=== PATIENT | male | born 1950 | race Caucasian/White ===

== ENCOUNTER 2016-07-29 22:23 | Inpatient (IN) ==
--- NOTE | 2016-07-29 22:55 | Emergency Department Note ---
Disposition Clinical Impression: Mass of lung, Pneumonia Disposition: Admitted As Inpatient Condition: Fair Chest Pain HPI - General Chief Complaint: ED Chest Pain Stated Complaint: CP Time Seen by Provider: 07/29/16 22:30 Source: patient, EMS Mode of arrival: EMS Limitations: no limitations Vital Signs Reviewed: Yes Nursing Notes Reviewed: Yes - History of Present Illness HPI Narrative: Patient is brought to the ED from the [facility]. He states x 2 months he has been short of breath, coughing and feeling weak and not sure what is going on. While at the [place] they did a chest xray which showed a possible mass in the RUL. They were unable to perform CT of chest so sent him to the ED. Pt complaint: chest pain, other (increased shortness of breath ) Onset (ago): unknown Duration: gradually worsening Onset: during rest Pain Location: right chest Severity: severe Severity scale (1-10): 9 Quality: aching, other (with more shortness of breath ) Improves with: nothing Worsens with: inspiration Context: recent illness Associated symptoms: Reports: dyspnea, cough Treatments prior to arrival chest pain: oxygen - Related Data Allergies Allergy/AdvReac Type Severity Reaction Status Date / Time Penicillins Allergy See Verified 07/29/16 22:28 Comments All systems ED: reviewed and negative except as stated. ENT ED: Reports: congestion Cardiovascular: Reports: chest pain Respiratory: Reports: cough, dyspnea Gastrointestinal: Denies: abdominal pain, nausea, vomiting, diarrhea, constipation, hematemesis, melena, hematochezia Chest Pain PMH - Past Medical History Medical history: Reports: arthritis, COPD, GERD, hyperlipidemia, hypertension Psychiatric history: Reports: anxiety, depression, PTSD - Social History Smoking Status: Current some day smoker Alcohol use: Reports: none Drug use: Reports: none Physical Exam - General Limitations: no limitations General appearance: alert - Head Head exam: atraumatic, normocephalic, normal inspection - Eye Eye exam: Present: normal appearance, PERRL, EOMI - Neck Neck exam: Present: normal inspection, full ROM, trachea midline, tenderness, lymphadenopathy. Absent: meningismus, thyromegaly - Chest Chest inspection: Present: normal inspection, symmetric chest wall rise - Respiratory Respiratory exam: Present: normal lung sounds bilaterally - Cardiovascular Cardiovascular exam: Present: regular rate, normal rhythm, normal heart sounds - Abdominal Exam Abdominal exam: Present: soft, Non-Tender. Absent: tenderness, distention, guarding, rebound, rigidity - Extremities Exam Extremities exam: Present: normal inspection, full ROM. Absent: tenderness, pedal edema - Neurological Exam Neurological exam: Present: alert, oriented X3 - Psychiatric Psychiatric exam: Present: normal affect, normal mood - Skin Skin exam: Present: warm, dry, intact, normal color Course - Consultations Consultation #1: spoke with Dr. Harman, hospitalist, who accepted patient for admission. Time: 00:26 Vital Signs Temperature 99.2 F 07/29/16 22:28 Pulse Rate 88 07/29/16 22:28 Respiratory Rate 20 07/29/16 22:28 Blood Pressure 155/87 07/29/16 22:28 O2 Sat by Pulse Oximetry 97 07/29/16 22:28 Temperature 99.2 F 07/29/16 22:28 Pulse Rate 88 07/29/16 22:28 Respiratory Rate 20 07/29/16 22:28 Blood Pressure 155/87 07/29/16 22:28 O2 Sat by Pulse Oximetry 97 07/29/16 22:56 Oxygen Delivery Oxygen Delivery Room Air Chest Pain - Lab Data Lab results reviewed: Yes I reviewed the patient's lab results. Lab results narrative: lab results were sent with patient from the [facility] - Radiology Data Radiology results reviewed: Yes I reviewed the patient's radiology results. Attestation Statement - Attestation Attestation: I, Neymar Enriquez MD, personally performed a history and physical exam of the patient and discussed their management with the midlevel provicer, PAC/MOISTURE TESTER. I reviewed the midlevel provider's note and agree with the documented findings, medical decision making, and plan of care. 65-year-old male [place] patient with a complain of some shortness of breath and general illness and weight loss which is apparently been going on over the past few months however patient tells me it is just in the past few days. He was seen at the [facility] urgent care and chest x-ray showed an apparent lung mass. He was referred here for CT of the chest and further evaluation and management. On examination and is a cachectic elderly male in no acute distress. He is alert and oriented 3. There is no cyanosis or diaphoresis. Breath sounds are decreased bilaterally. Heart regular rate and rhythm. Abdomen soft and nontender with normal bowel sounds. CT obtained here and was suspicious for malignancy but also showed pneumonia. The hospitalist, Dr. Harman, was consulted and accepted admission of the patient.
--- NOTE | 2016-07-30 01:01 | Internal Med History&Physical ---
Date of Encounter: 07/30/16 Time of Encounter: 00:45 Assessment and Plan (1) Pneumonia Current visit: Yes Status: Suspected Admit inpatient. IV antibiotics. O2 supplementation as needed. Follow blood cultures and sputum culture. Patient was in the hospital for at least 2 midnights. High risk for complications. Qualifiers: Pneumonia type: due to Pneumococcus Laterality: right Lung location: middle lobe of lung Qualified Code(s): J13 - Pneumonia due to Streptococcus pneumoniae (2) Mass of lung Current visit: Yes Status: Acute Right upper lobe lesion with multiple lesions suggestive of malignancy. We will consult pulmonology for further recommendations and see if patient would need repeat biopsy. We will also obtain records from [place] regarding previous biopsy results and imaging studies. (3) COPD (chronic obstructive pulmonary disease) Current visit: Yes Status: Chronic Chronic. Does not appear to be in acute exacerbation at this time. We will use nebs as needed. O2 supplementation as needed Qualifiers: COPD type: emphysema Emphysema type: panlobular Qualified Code(s): J43.1 - Panlobular emphysema (4) Tobacco abuse Current visit: Yes Status: Chronic We will order nicotine patch. Internal Medicine - H&P: HPI Chief complaint: Cough, less of breath and right-sided chest pain, weight loss, malaise Admitted From: Emergency Dept Plans for Post Hospital Care: Home History of present illness: Mr. Cuba is a 65 year old male with history of COPD, hyperlipidemia, hypertension, PTSD who presented to the [place] initially with complaints of right- sided chest pain, shortness of breath and weight loss that has been ongoing for about a year but progressively worse over the past 2 months. He has been having productive sputum without any hemoptysis. No hematemesis or melena. The pain is located in the right upper and lateral region. Nonradiating. Rated 9 out of 10 in severity. Pain gets worse with deep breaths. Denies any fever or chills or night sweats. No nausea or vomiting. Patient states that he was previously told he had a "pencil lead" sized lesion in his right lung which was biopsied multiple times which was found to be benign. Past Med Surg Social Fam HX - Past Medical History Medical history: arthritis, COPD, GERD, hyperlipidemia, hypertension Psychiatric history: anxiety, depression, PTSD - Social History Smoking Status: Current some day smoker Alcohol use: none Drug use: none - Additional Family History Additional family history: Reviewed and found to be noncontributory at this time Internal Medicine - H&P: Meds Allergies Penicillins Allergy (Verified 07/29/16 22:28) See Comments All Systems PM: A 10-system review of systems was performed and is negative for pertinent findings except as documented above in the HPI. - Constitutional Constitutional: malaise, weight loss, no chills, no fever(s), no night sweats - EENT Eyes: no change in vision, no discharge, no pain, no photophobia Ears: no ear discharge, no ear pain, no tinnitus Nose, mouth and throat: no dysphagia, no nasal discharge, no neck pain, no sore throat - Cardiovascular Cardiovascular ROS IM: chest pain (Right-sided), no diaphoresis, no dyspnea, no lightheadedness, no palpitations, no syncope - Respiratory Respiratory: cough, dyspnea, no wheezing, no excessive phlegm production - Gastrointestinal Gastrointestinal: no abdominal pain, no diarrhea, no hematemesis, no hematochezia, no melena, no nausea, no vomiting - Musculoskeletal Musculoskeletal ROS IM: no numbness, no tingling - Integumentary Integumentary IM: no rash, no unusual bruising - Neurological Neurological ROS: no confusion, no convulsions, no focal weakness, no numbness, no tingling, no tremor(s) - Hematologic/Lymphatic Hematologic/Lymphatic: no easy bruising - Constitutional Vitals: Temp Pulse Resp BP Pulse Ox 99.2 F 88 20 155/87 97 07/29/16 22:28 07/29/16 22:28 07/29/16 22:28 07/29/16 22:28 07/29/16 22:56 General appearance: Present: cooperative, A&O X 3, answers questions appropriately - Eye Eye exam: Present: EOMI, PERRL, conjuntiva pink, sclera anicteric - Neck Neck exam general surgery: Present: supple, trachea midline. Absent: lymphadenopathy - Respiratory Respiratory exam: Present: decreased breath sounds (Right upper lobes), prolonged expiratory phase. Absent: accessory muscle use, rales, rhonchi, wheezes - GI/Abdominal GI/Abdominal exam: Present: normal bowel sounds, soft, no peritoneal signs. Absent: distended, tenderness - Extremities Exam Extremities exam: Present: warm, radial pulses palpable and symetrical. Absent : calf tenderness, cyanotic, pedal edema - Neurological Exam Neurological exam: Present: alert, CN II-XII intact, oriented X3, no focal deficits, strengths equal and symetr throughout. Absent: facial droop, speech deficit - Psychiatric Psychiatric exam: Present: normal affect, normal mood - Skin Skin exam: Present: dry, intact Internal Med - H&P Results - Labs Labs: WBC 13.1, hemoglobin 9 - EKG Data -: EKG Interpreted by Myself EKG shows normal: sinus rhythm - EKG Data Interpretation IM: normal EKG - Impressions ITS Impressions Chest CT 07/29/16 23:15 IMPRESSION: 1. Multiple irregular pulmonary lesions as above. Finding are suspicious for underlying neoplastic process, possibly malignant. In addition, there is an area of masslike consolidation in medial right upper lobe. While this could reflect pneumonia, possible underlying neoplastic mass cannot be confidently excluded. 2. Severe emphysema. 3. Right upper lobe consolidation and superimposed ground-glass opacities in the right or lower lobe. Findings are suspicious for infectious pneumonia. Multiple cystic lucencies within the consolidated lung most likely reflect cystic changes related to emphysema. However given the extensive consolidation, early forming intrapulmonary abscesses are difficult to exclude. D/ / Skip Kramer MD / Skip Kramer MD Interpreting Provider: Skip Kramer MD - Attending Attestation This document has been at least partially created by [employer] recognition technology by Dr. Harman. Errors in grammar, wording or other phrases may exist. If errors are found after the documentation is signed, they will be addressed individually in the addendum section of this document when appropriate.
[2016-07-30] MEDS ORDERED: Naloxone 0.4 MG/ML INJ IVP PRN (01:21)
[2016-07-30 02:08] LABS: Basophils % 0.1 %; Hematocrit 25.5 % (37.5-50.1); Hemoglobin 8.4 g/dL (12.9-16.9); Immature Granulocytes % 0.6 % (0-4); Lymphocytes # 0.2 K/mcL (0.6-4.6); Lymphocytes % 1.5 %; Mean Corpuscular HGB Conc 32.9 g/dL (31.6-35.5); Mean Corpuscular Volume 94.1 fL (83.0-100.0); Mean Platelet Volume 8.3 fL (9.4-12.4); Monocytes # 0.1 K/mcL (0.0-1.3); Monocytes % 0.5 %; Neutrophils # 14.8 K/mcL (1.6-8.9); Platelet Count 438 K/mcL (140-400); Red Blood Count 2.71 M/mcL (4.19-5.50); Red Cell Distribution Width 13.3 % (11.5-14.5); Segmented Neutrophils % 97.3 %
[2016-07-30 02:10] LABS: INR 1.2; Prothrombin Time 12.5 Seconds (9.4-12.1)
[2016-07-30 02:13] LABS: Activated Partial Thrombo Time 37.7 Seconds (26.0-36.0)
[2016-07-30 02:23] LABS: BUN/Creatinine Ratio 41 (6-26); Blood Urea Nitrogen 28 mg/dL (8-26); Calcium 9.4 mg/dL (8.6-10.8); Carbon Dioxide 21 mEq/L (19-29); Chloride 102 mEq/L (98-109); Glucose 131 mg/dL (70-99); Osmolality,Calculated 291 (280-300); Potassium 4.2 mEq/L (3.5-4.5); Sodium 137 mEq/L (136-145); eGFR For African Americans > 60 (> 60); eGFR For Non-African Americans > 60 (> 60)
[2016-07-30] MEDS: Levofloxacin 750 MG/150 ML 750 MG/150 ML BAG IVPB SCH ×2 (03:48→09:34)
[2016-07-30] MEDS: *HR* Methadone 10 MG TABLET PO SCH ×3 (04:11→20:17)
[2016-07-30] MEDS: *HR* Heparin 5,000 UNIT/ML VIAL SQ SCH ×2 (05:55→16:24)
[2016-07-30] MEDS ORDERED: traZODone 50 MG TABLET PO PRN (06:57)
[2016-07-30] MEDS ORDERED: *HR* Methadone 10 MG TABLET PO SCH (08:00)
[2016-07-30] MEDS: Ascorbic Acid 500 MG TABLET PO SCH (09:31)
[2016-07-30] MEDS: BuPROPion SR (12 HR) 150 MG TABLET PO SCH ×2 (09:31→20:17)
[2016-07-30] MEDS: Folic Acid 1 MG TABLET PO SCH (09:31)
[2016-07-30] MEDS: Aspirin Enteric Coated 81 MG Tablet PO SCH (09:32)
[2016-07-30] MEDS: Lisinopril 20 MG TABLET PO SCH ×2 (09:32→20:17)
[2016-07-30] MEDS: amLODIPine 5 MG TABLET PO SCH (09:33)
[2016-07-30] MEDS: Loratadine 10 MG TABLET PO SCH (09:33)
[2016-07-30] MEDS: Famotidine 20 MG TABLET PO SCH ×2 (09:34→20:17)
[2016-07-30] MEDS: Nicotine 21 MG PATCH.TD24 TD SCH (09:34)
[2016-07-30] MEDS: Artificial Tears SOLN 15 ML BOTTLE OP SCH ×3 (09:37→20:19)
[2016-07-30] MEDS: Methocarbamol 750 MG TABLET PO PRN (09:45)
--- NOTE | 2016-07-30 10:43 | Internal Med Progress Note ---
Date of Encounter: 07/30/16 Time of Encounter: 10:00 - Assessment and plan (1) Mass of lung Current Visit: Yes Status: Acute Assessment and plan: Pt was to have bronchoscopy today, however, he decided that he was hungry and wanted to eat breakfast. He is agreeable to have it tomorrow. Will continue 02, IV antibiotics, as planned. (2) Pneumonia Current Visit: Yes Status: Acute Assessment and plan: Plan as above. Lungs clear but diminished throughout. Continue IV antibiotics and 02. Qualifiers: Pneumonia type: due to unspecified organism Laterality: right Lung location: upper lobe of lung Qualified Code(s): J18.1 - Lobar pneumonia, unspecified organism (3) COPD (chronic obstructive pulmonary disease) Current Visit: Yes Status: Chronic Assessment and plan: Plan as above. Qualifiers: COPD type: emphysema Emphysema type: panlobular Qualified Code(s): J43.1 - Panlobular emphysema (4) Tobacco abuse Current Visit: Yes Status: Chronic Assessment and plan: Nicoderm patch. - Time Spent With Patient less than 15 minutes - Subjective Interval history: Pt states that he does not feel well today. Dr Lange states that pt did not want his bronchoscopy today, pt says that he was hungry and hadn't eaten for 48 hours. He reports that he has lost about 70 lbs over the last year without trying and that he eats well at home. During exam, pt states that his abd is tender to palpation, when asked why he fluctuates between saying that he is hungry, he has to have a bowel movement, and "you'd hurt too if you had all of that stuff done to you." Pt is agreeable to having bronchoscopy done tomorrow and staying for IV atb and hydration. - Constitutional Vitals: Temp Pulse Resp BP Pulse Ox 98.2 F 88 15 163/81 99 07/30/16 07:27 07/30/16 07:27 07/30/16 07:27 07/30/16 07:27 07/30/16 07:27 General appearance: Present: cooperative, A&O X 3, no acute distress, answers questions appropriately - Neck Neck exam general surgery: Present: normal inspection. Absent: lymphadenopathy , tenderness - Respiratory Respiratory exam: Present: decreased breath sounds, CTAB. Absent: accessory muscle use, chest wall tenderness, respiratory distress, rhonchi, stridor, wheezes, tachypnea - Cardiovascular Cardiovascular exam: Present: RRR, +S1, +S2. Absent: diastolic murmur, systolic murmur - GI/Abdominal GI/Abdominal exam: Present: guarding, normal bowel sounds. Absent: tenderness Additional comments: Pt c/o abd tenderness with palpation. - Extremities Exam Extremities exam: Present: normal capillary refill, normal inspection, warm. Absent: cyanotic, joint swelling, pedal edema, tenderness - Neurological Exam Neurological exam: Present: alert, oriented X3. Absent: facial droop, speech deficit Internal Medicine: Result - Labs CBC & Chem 7: 07/30/16 01:57 07/30/16 01:57 Labs: Short CBC 07/30/16 Range/Units 01:57 WBC 15.2 H (4.3-11.1) K/mcL Hgb 8.4 L (12.9-16.9) g/dL Hct 25.5 L (37.5-50.1) % Plt Count 438 H (140-400) K/mcL Neutrophils # 14.8 H (1.6-8.9) K/mcL BMP 07/30/16 01:57 Sodium 137 Potassium 4.2 Chloride 102 Carbon Dioxide 21 BUN 28 H Creatinine 0.69 L Glucose 131 H Calcium 9.4 - ABG Interpretation ABG results: PT/INR, D-dimer PT 12.5 Seconds (9.4-12.1) H 07/30/16 01:57 Consult Discharge Plan - Plan [facility]errals: [facility] [Primary Care Provider] -
--- NOTE | 2016-07-30 12:00 | Pulmonology Consult Note ---
Date of Encounter: 07/30/16 Time of Encounter: 07:50 Assessment and Plan (1) Mass of lung Current Visit: Yes Status: Acute Patient has risk factors for lung cancer and he stated he had biopsy in the past , it will be good if those records can be obtained from [facility]. At this time he has significant pneumonia and need treatment first and biopsy of the mass later. He is high risk for pneumothorax. This can be done as outpatient with navigation bronchoscopy. (2) Pneumonia Current Visit: Yes Status: Acute Patient has significant pneumonia, mainly in the right upper lobe. Offered bronchoscopy today, but he wants to wait until tomorrow. Will arrange it for him. I will add Vancomycin. Qualifiers: Pneumonia type: due to unspecified organism Laterality: right Lung location: upper lobe of lung Qualified Code(s): J18.1 - Lobar pneumonia, unspecified organism (3) COPD (chronic obstructive pulmonary disease) Current Visit: Yes Status: Chronic Patient stated he will quit smoking tobacco and continue bronchodilators. Qualifiers: COPD type: emphysema Emphysema type: panlobular Qualified Code(s): J43.1 - Panlobular emphysema (4) Tobacco abuse Current Visit: Yes Status: Chronic Advised patient to quit smoking tobacco. History of Present Illness Consult date: 07/30/16 Requesting physician: Analilia Harman Reason for consult: pneumonia, lung mass Chief complaint: Cough and dyspnea History of present illness: This is a pleasant 65 year male with significant history of copd and continue to smoke tobacco present from [facility] after the went there for right sided chest pain and shortness of breath. Patient report few Ibs weight loss in past few days. He denies any hemoptysis and he denies any night sweats. patient has no fever or chills. Patient has no vomiting or nausea. He stated he knows about lung nodules which was biopsied in [place] 3-4 years back and he was told it was not malignant. Patient has stated he doesn't have any sick contact with any patient with TB and in the past his PPD has been negative. Past Med Surg Social Fam HX - Past Medical History Medical history: arthritis, COPD, GERD, hyperlipidemia, hypertension Psychiatric history: anxiety, depression, PTSD - Social History Smoking Status: Current some day smoker Alcohol use: none Drug use: none - Family History Mother Hx Family Cancer: Yes (brain) Medications and Allergies Albuterol Sulfate [Albuterol Inhaler] 2 puff IH Q6HR PRN 07/30/16 [History] Amlodipine Besylate 10 mg PO DAILY 07/30/16 [History] Ascorbic Acid [Vitamin C with Elham Hips] 500 mg PO DAILY 07/30/16 [History] Aspirin [Lo-Dose Aspirin EC] 81 mg PO DAILY 07/30/16 [History] Bupropion HCl [Zyban] 150 mg PO BID 07/30/16 [History] Carboxymethylcellulos/Glycerin [Refresh Optive Gel Eye Drops] 1 drop OP QID 08/13 [History] Cholecalciferol (D-3) [Vitamin D] 2,000 unit PO DAILY 07/30/16 [History] Diphenhydramine HCl [Nighttime Sleep Aid] 50 mg PO HS PRN 07/30/16 [History] Docusate Sodium [Stool Softener] 100 mg PO BID 07/30/16 [History] Etodolac [Lodine] 400 mg PO TID PRN 07/30/16 [History] Ferrous Sulfate [Iron] 325 mg PO DAILY 07/30/16 [History] Fluticasone Propionate [Flovent Diskus] 100 mcg IH DAILY 07/30/16 [History] Folic Acid 1 mg PO DAILY 07/30/16 [History] Guaifenesin [Mucus Relief] 400 mg PO BID 07/30/16 [History] Lactulose 10 gm PO DAILY 07/30/16 [History] Lisinopril [Zestril] 20 mg PO BID 07/30/16 [History] Loratadine [Allergy Relief] 10 mg PO DAILY 07/30/16 [History] Methadone 10 mg PO Q8HR 07/30/16 [History] Methocarbamol [Robaxin-750] 1.5 g PO BID PRN 07/30/16 [History] Metoprolol [Lopressor] 25 mg PO BID 07/30/16 [History] Multivitamin [One Daily Essential] 1 tab PO DAILY 07/30/16 [History] Nicotine Patch [Nicoderm] 21 mg TD DAILY 07/30/16 [History] Nicotine Polacrilex [Nicotine Lozenge] 2 mg BC Q2H PRN 07/30/16 [History] Quetiapine Fumarate [SEROquel] 150 mg PO HS 07/30/16 [History] Ranitidine HCl [Acid Steel Layout Worker] 150 mg PO BID 07/30/16 [History] Sennosides [Senokot] 17.2 mg PO HS 07/30/16 [History] Sertraline [Zoloft] 100 mg PO DAILY 07/30/16 [History] Simvastatin [Zocor] 10 mg PO HS 07/30/16 [History] Sodium Chloride 2 gm PO TID 07/30/16 [History] Trazodone HCl 75 mg PO HS PRN 07/30/16 [History] Allergies Penicillins Allergy (Verified 07/30/16 10:55) See Comments UNKNOWN REACTION- LISTED ON [facility]IENT[facility]S [facility] MEDICATION LIST All Systems: A 10-system review of systems was performed and is negative for pertinent findings except as documented above in the HPI. Physical Examination Vital Signs: Vital Signs, Last 4 Hours Temp Pulse Resp BP Pulse Ox 07/30/16 11:00 98.5 F 95 19 127/85 97 07/30/16 09:23 97 General appearance: no acute distress Eyes: nonicteric ENT: oropharynx moist Mallampati (class): 2 Neck: supple, no lymphadenopathy Effort: normal Inspection: hyperextended Auscultation: bilateral: diminished breath sounds Percussion: bilateral: not dull Cardiovascular: regular rate and rhythm Gastrointestinal: normoactive bowel sounds, non-distended Extremities: no cyanosis, no edema normal mental status, non-focal exam mood appropriate Results - Laboratory Findings CBC and BMP: 07/30/16 01:57 07/30/16 01:57 PT/INR, D-dimer PT 12.5 Seconds (9.4-12.1) H 07/30/16 01:57 Abnormal lab findings: Abnormal lab results WBC 15.2 K/mcL (4.3-11.1) H 07/30/16 01:57 RBC 2.71 M/mcL (4.19-5.50) L 07/30/16 01:57 Hgb 8.4 g/dL (12.9-16.9) L 07/30/16 01:57 Hct 25.5 % (37.5-50.1) L 07/30/16 01:57 Plt Count 438 K/mcL (140-400) H 07/30/16 01:57 MPV 8.3 fL (9.4-12.4) L 07/30/16 01:57 Neutrophils # 14.8 K/mcL (1.6-8.9) H 07/30/16 01:57 Lymphocytes # 0.2 K/mcL (0.6-4.6) L 07/30/16 01:57 PT 12.5 Seconds (9.4-12.1) H 07/30/16 01:57 APTT 37.7 Seconds (26.0-36.0) H 07/30/16 01:57 BUN 28 mg/dL (8-26) H 07/30/16 01:57 Creatinine 0.69 mg/dL (0.72-1.25) L 07/30/16 01:57 BUN/Creatinine Ratio 41 (6-26) H 07/30/16 01:57 Glucose 131 mg/dL (70-99) H 07/30/16 01:57 - Diagnostic Findings CT scan - chest: report reviewed, image reviewed - Clinical Findings Intake & Output: Intake & Output 07/29/16 07/30/16 07/30/16 23:59 07:59 15:59 Intake Total 150 / 150 240 / 240 Balance 150 / 150 240 / 240 Weight 52.844 kg Consult Discharge Plan - Plan [facility]errals: [facility] [Primary Care Provider] -
[2016-07-30] MEDS: Beclomethasone 80mcg MDI IH SCH (12:05)
[2016-07-30] MEDS: Vancomycin 750 MG in D5% in Water 250 ML IVPB SCH (12:41)
--- NOTE | 2016-07-30 16:13 | Electrocardiograph Report ---
[place] [id number] Test Date: 2016-07-29 Pat Name: Kieran Cuba Department: 105 Room: [facility] Gender: M Account Services Analyst: : 1950 Requested By: Elsie Mack Order Number: [id number] Reading MD: Vita Valadez Measurements Intervals [place] Rate: 86 P: 81 MD: 140 QRS: 6 QRSD: 105 T: 89 QT: 359 QTc: 403 Interpretive Statements SINUS RHYTHM Electronically Signed On 07-30-2016 16:12:18 EST by Vita Valadez
[2016-07-30] MEDS: Sennosides 8.6 MG TABLET PO SCH (20:18)
[2016-07-30] MEDS ORDERED: NON-FORMULARY MEDICATION 1 EACH EACH (Simvastatin [Zocor] 10 MG) PO SCH (21:00)
[2016-07-30] MEDS ORDERED: Budesonide Neb 0.25 MG/2 ML IH SCH (22:00)
[2016-07-31] MEDS: Vancomycin 750 MG in D5% in Water 250 ML IVPB SCH ×2 (00:49→12:00)
[2016-07-31 03:58] LABS: Basophils % 0.1 %; Eosinophils # 0.1 K/mcL (0.0-0.6); Eosinophils % 0.4 %; Hematocrit 28.1 % (37.5-50.1); Immature Granulocytes % 0.5 % (0-4); Lymphocytes # 0.5 K/mcL (0.6-4.6); Lymphocytes % 3.5 %; Mean Corpuscular Hemoglobin 30.8 pg (28.0-33.3); Mean Corpuscular Volume 96.2 fL (83.0-100.0); Mean Platelet Volume 8.3 fL (9.4-12.4); Monocytes # 0.9 K/mcL (0.0-1.3); Monocytes % 6.5 %; Neutrophils # 12.3 K/mcL (1.6-8.9); Platelet Count 512 K/mcL (140-400); Red Blood Count 2.92 M/mcL (4.19-5.50); Red Cell Distribution Width 13.6 % (11.5-14.5)
[2016-07-31 04:13] LABS: BUN/Creatinine Ratio 20 (6-26); Blood Urea Nitrogen 14 mg/dL (8-26); Calcium 9.7 mg/dL (8.6-10.8); Carbon Dioxide 24 mEq/L (19-29); Chloride 98 mEq/L (98-109); Glucose 90 mg/dL (70-99); Osmolality,Calculated 276 (280-300); Potassium 4.4 mEq/L (3.5-4.5); Sodium 133 mEq/L (136-145); eGFR For African Americans > 60 (> 60); eGFR For Non-African Americans > 60 (> 60)
[2016-07-31 04:32] LABS: Thyroid Stimulating Hormone 3.879 mcIU/mL (0.350-4.840)
[2016-07-31] MEDS: *HR* Methadone 10 MG TABLET PO SCH ×3 (04:34→20:19)
[2016-07-31] MEDS: Methocarbamol 750 MG TABLET PO PRN ×2 (04:41→20:18)
[2016-07-31 04:47] LABS: Folate 12.7 ng/mL (7.0-31.4)
[2016-07-31] MEDS: *HR* Heparin 5,000 UNIT/ML VIAL SQ SCH ×2 (06:42→17:27)
[2016-07-31] MEDS ORDERED: *HR* Midazolam HCl 5 MG/5 ML VIAL IVP ONE (07:44)
[2016-07-31] MEDS ORDERED: *HR* FentaNYL (PF) 100 MCG/2 ML VIAL ONE (07:45)
[2016-07-31] MEDS ORDERED: Lidocaine Viscous Oral Soln 15 ML SOLUTION ONE (07:45)
[2016-07-31] MEDS ORDERED: Albuterol 2.5 MG/3 ML NEBULIZER IH ONE (07:47)
[2016-07-31] MEDS ORDERED: Tetracaine/Benzocaine/Butamben 200MG/SPRAY (100SPY/BOT) MM ONE (07:47)
[2016-07-31] MEDS ORDERED: *HR* EPINEPHrine 1 MG/10 ML SYRINGE INTRATRACH PRN (07:47)
[2016-07-31] MEDS ORDERED: Lidocaine Viscous Oral Soln 15 ML SOLUTION MM ONE (07:47)
--- NOTE | 2016-07-31 07:49 | Pre-Sedation Evaluation ---
Pre-sedation evaluation - Pre-sedation checklist Date of procedure: 07/31/16 Procedure: Bronchoscopy Recent Vitals: Last Vital Signs Temp 98.7 F 07/31/16 06:56 Pulse 87 07/31/16 06:56 Resp 16 07/31/16 06:56 BP 130/76 07/31/16 06:56 Pulse Ox 99 07/31/16 06:56 H&P (including ROS) documented in medical record: Yes Dietary Status: NPO after Midnight Airway Assessment: Patient can open mouth completely, TMJ function normal Possible difficult airway: No ASA Classification *see protocol: CLASS III-Severe systemic disease Plan of Care: Pt appropriate candidate for procedure/moderate/conscious sedation , Risks/benefits of procedure/sedation discussed w/ patient/family
[2016-07-31] MEDS ORDERED: 0.9 % Sodium Chloride 1,000 ML IVC SCH (08:00)
[2016-07-31] MEDS: *HR* Midazolam HCl 5 MG/5 ML VIAL IVP PRN ×3 (08:32→08:36)
[2016-07-31] MEDS: *HR* FentaNYL (PF) 100 MCG/2 ML VIAL IVP PRN ×3 (08:32→08:36)
[2016-07-31] MEDS ORDERED: Tetracaine/Benzocaine/Butamben 200MG/SPRAY (100SPY/BOT) ONE (09:24)
[2016-07-31] MEDS: Beclomethasone 80mcg MDI IH SCH (09:51)
[2016-07-31] MEDS ORDERED: Albuterol 2.5 MG/3 ML NEBULIZER ONE (10:04)
[2016-07-31] MEDS: Folic Acid 1 MG TABLET PO SCH (11:59)
[2016-07-31] MEDS: Lisinopril 20 MG TABLET PO SCH ×2 (11:59→20:19)
[2016-07-31] MEDS: Loratadine 10 MG TABLET PO SCH (11:59)
[2016-07-31] MEDS: amLODIPine 5 MG TABLET PO SCH (11:59)
[2016-07-31] MEDS: BuPROPion SR (12 HR) 150 MG TABLET PO SCH ×2 (11:59→20:20)
[2016-07-31] MEDS: Aspirin Enteric Coated 81 MG Tablet PO SCH (12:00)
[2016-07-31] MEDS: Ascorbic Acid 500 MG TABLET PO SCH (12:00)
[2016-07-31] MEDS: Famotidine 20 MG TABLET PO SCH ×2 (12:00→20:20)
[2016-07-31] MEDS: Levofloxacin 750 MG/150 ML 750 MG/150 ML BAG IVPB SCH (12:01)
[2016-07-31] MEDS: Nicotine 21 MG PATCH.TD24 TD SCH (12:02)
[2016-07-31] MEDS: Artificial Tears SOLN 15 ML BOTTLE OP SCH ×4 (12:03→20:19)
[2016-07-31 12:26] LABS: Appearance of Body Fluid Cloudy (Clear); Volume of Body Fluid 15 mL
--- NOTE | 2016-07-31 14:28 | Internal Med Progress Note ---
Date of Encounter: 07/31/16 Time of Encounter: 14:00 - Assessment and plan (1) Mass of lung Current Visit: Yes Status: Acute Assessment and plan: Pulmonary consultation appreciated with Dr. Lange Status post diagnostic bronchoscopy due to highly suspicious lesions found on CT chest Awaiting records from [facility] (2) Pneumonia Current Visit: Yes Status: Acute Assessment and plan: Leukocytosis persists but improved from previous day Continue vancomycin and Levaquin at this time Follow-up blood cultures Qualifiers: Pneumonia type: due to unspecified organism Laterality: right Lung location: upper lobe of lung Qualified Code(s): J18.1 - Lobar pneumonia, unspecified organism (3) COPD (chronic obstructive pulmonary disease) Current Visit: Yes Status: Chronic Assessment and plan: Not in acute exacerbation Continue bronchodilator support Continue O2 supplementation as needed Qualifiers: COPD type: emphysema Emphysema type: panlobular Qualified Code(s): J43.1 - Panlobular emphysema (4) Tobacco abuse Current Visit: Yes Status: Chronic Assessment and plan: Smoking cessation counseling provided patient not ready to quit at this time Nicotine replacement therapy provided (5) Chronic pain Current Visit: Yes Status: Chronic Assessment and plan: Continue home medications She appears to be on methadone as part of his home medications Qualifiers: Chronic pain type: other chronic pain Qualified Code(s): G89.29 - Other chronic pain (6) DVT prophylaxis Current Visit: Yes Status: Acute Assessment and plan: Heparin subcutaneous (7) Anemia Current Visit: Yes Status: Acute Assessment and plan: Likely of chronic disease given iron study results H&H low but acceptable Improved from previous day No active bleeding noted at this time Continue to monitor We will transfuse as needed Qualifiers: Anemia type: unspecified type Qualified Code(s): D64.9 - Anemia, unspecified - Subjective Interval history: Patient seen and examined at bedside. S/P bronchoscopy. Tolerated the procedure well and currently saturating well on nasal cannula. Reports of diffuse body aches worse in the back, which are chronic in nature. Denies any shortness of breath or chest pain at this time. - Constitutional Vitals: Temp Pulse Resp BP Pulse Ox 98.8 F 83 16 127/73 97 07/31/16 11:08 07/31/16 11:08 07/31/16 11:08 07/31/16 11:08 07/31/16 11:08 General appearance: Present: A&O X 3, no acute distress, underweight, answers questions appropriately - Head Head exam: Present: atraumatic - Eye Eye exam: Present: PERRL, conjuntiva pink, sclera anicteric - Respiratory Respiratory exam: Present: decreased breath sounds. Absent: respiratory distress, wheezes - Cardiovascular Cardiovascular exam: Present: RRR, +S1, +S2. Absent: diastolic murmur, gallop, rubs, systolic murmur - GI/Abdominal GI/Abdominal exam: Present: normal bowel sounds, soft, no peritoneal signs. Absent: distended, tenderness - Extremities Exam Extremities exam: Present: warm, radial pulses palpable and symetrical. Absent : calf tenderness, cyanotic, pedal edema - Neurological Exam Neurological exam: Present: alert, oriented X3 Internal Medicine: Result - Labs CBC & Chem 7: 07/31/16 03:38 07/31/16 03:38 Labs: Short CBC 07/31/16 Range/Units 03:38 WBC 13.8 H (4.3-11.1) K/mcL Hgb 9.0 L (12.9-16.9) g/dL Hct 28.1 L (37.5-50.1) % Plt Count 512 H (140-400) K/mcL Neutrophils # 12.3 H (1.6-8.9) K/mcL BMP 07/31/16 03:38 Sodium 133 L Potassium 4.4 Chloride 98 Carbon Dioxide 24 BUN 14 D Creatinine 0.69 L Glucose 90 Calcium 9.7 - ABG Interpretation ABG results: PT/INR, D-dimer PT 12.5 Seconds (9.4-12.1) H 07/30/16 01:57 - Impressions Impressions Abdomen/Pelvis CT 07/30/16 14:30 IMPRESSION: Limited noncontrast examination with no acute abnormality demonstrated in the abdomen or pelvis. D/ / Karan Valdivia MD / Karan Valdivia MD Interpreting Provider: Karan Valdivia MD Abdomen/Pelvis CT 07/30/16 16:05 IMPRESSION: 1. Borderline biliary ductal dilation. No gross obstructing mass. 2. No evidence of metastatic disease within the abdomen and pelvis. D/ / 07/30/2016 22:38:03 Sikp Kramer MD / abe Interpreting Provider: Skip Kramer MD Consult Discharge Plan - Plan [facility]: [facility] [[facility] Care Provider[facility] -
[2016-07-31 15:25] LABS: Appearance of Body Fluid Clear (Clear); Volume of Body Fluid 26 mL
[2016-07-31] MEDS: Sennosides 8.6 MG TABLET PO SCH (20:20)
[2016-08-01 01:40] LABS: Basophils % 0.1 %; Eosinophils # 0.1 K/mcL (0.0-0.6); Eosinophils % 0.6 %; Hematocrit 22.9 % (37.5-50.1); Hemoglobin 7.5 g/dL (12.9-16.9); Immature Granulocytes % 0.4 % (0-4); Immature Platelets 1.1 % (1.1-6.1); Lymphocytes # 0.3 K/mcL (0.6-4.6); Mean Corpuscular HGB Conc 32.8 g/dL (31.6-35.5); Mean Corpuscular Hemoglobin 31.5 pg (28.0-33.3); Mean Corpuscular Volume 96.2 fL (83.0-100.0); Mean Platelet Volume 8.1 fL (9.4-12.4); Monocytes % 9.7 %; Neutrophils # 8.9 K/mcL (1.6-8.9); Platelet Count 396 K/mcL (140-400); Red Blood Count 2.38 M/mcL (4.19-5.50); Red Cell Distribution Width 13.4 % (11.5-14.5); Segmented Neutrophils % 86.2 %
[2016-08-01 01:50] LABS: BUN/Creatinine Ratio 18 (6-26); Blood Urea Nitrogen 12 mg/dL (8-26); Calcium 8.6 mg/dL (8.6-10.8); Carbon Dioxide 24 mEq/L (19-29); Chloride 97 mEq/L (98-109); Glucose 110 mg/dL (70-99); Magnesium 1.1 mg/dL (1.6-2.6); Osmolality,Calculated 270 (280-300); Potassium 4.1 mEq/L (3.5-4.5); Sodium 130 mEq/L (136-145); eGFR For African Americans > 60 (> 60); eGFR For Non-African Americans > 60 (> 60)
[2016-08-01 04:05] LABS: Basophils % 0.2 %; Eosinophils # 0.1 K/mcL (0.0-0.6); Eosinophils % 0.6 %; Hematocrit 24.8 % (37.5-50.1); Hemoglobin 8.1 g/dL (12.9-16.9); Immature Granulocytes % 0.7 % (0-4); Lymphocytes # 0.4 K/mcL (0.6-4.6); Lymphocytes % 3.6 %; Mean Corpuscular HGB Conc 32.7 g/dL (31.6-35.5); Mean Corpuscular Hemoglobin 31.5 pg (28.0-33.3); Mean Corpuscular Volume 96.5 fL (83.0-100.0); Mean Platelet Volume 8.6 fL (9.4-12.4); Monocytes # 0.8 K/mcL (0.0-1.3); Monocytes % 7.5 %; Neutrophils # 9.3 K/mcL (1.6-8.9); Platelet Count 418 K/mcL (140-400); Red Blood Count 2.57 M/mcL (4.19-5.50); Red Cell Distribution Width 13.4 % (11.5-14.5); Segmented Neutrophils % 87.4 %
[2016-08-01] MEDS: Vancomycin 1,250 MG in D5% in Water 250 ML IVPB SCH ×2 (04:06→14:39)
[2016-08-01] MEDS: *HR* Methadone 10 MG TABLET PO SCH ×3 (04:06→20:59)
[2016-08-01] MEDS: *HR* Heparin 5,000 UNIT/ML VIAL SQ SCH ×2 (06:09→18:14)
[2016-08-01] MEDS: Vancomycin 750 MG in D5% in Water 250 ML IVPB SCH (06:31)
[2016-08-01] MEDS: Nicotine 21 MG PATCH.TD24 TD SCH (08:00)
[2016-08-01] MEDS: BuPROPion SR (12 HR) 150 MG TABLET PO SCH ×2 (08:01→20:59)
[2016-08-01] MEDS: Aspirin Enteric Coated 81 MG Tablet PO SCH (08:01)
[2016-08-01] MEDS: Levofloxacin 750 MG/150 ML 750 MG/150 ML BAG IVPB SCH (08:01)
[2016-08-01] MEDS: Ascorbic Acid 500 MG TABLET PO SCH (08:01)
[2016-08-01] MEDS: Famotidine 20 MG TABLET PO SCH ×2 (08:02→20:59)
[2016-08-01] MEDS: Lisinopril 20 MG TABLET PO SCH ×2 (08:02→20:58)
[2016-08-01] MEDS: Folic Acid 1 MG TABLET PO SCH (08:02)
[2016-08-01] MEDS: Loratadine 10 MG TABLET PO SCH (08:03)
[2016-08-01] MEDS: Artificial Tears SOLN 15 ML BOTTLE OP SCH ×4 (08:03→20:59)
[2016-08-01] MEDS: amLODIPine 5 MG TABLET PO SCH (08:04)
[2016-08-01] MEDS ORDERED: Magnesium Sulfate 2 GM in D5% in Water 100 ML IVPB ONE (08:34)
[2016-08-01] MEDS: Beclomethasone 80mcg MDI IH SCH (09:52)
--- NOTE | 2016-08-01 10:26 | Pulmonology Progress Note ---
Date of Encounter: 08/01/16 Time of Encounter: 10:00 Assessment and Plan (1) Mass of lung Current Visit: Yes Status: Acute Patient had bronchoscopy and result is pending. If nondiagnostic will need outpatient bronchoscopy with medication due to significant emphysema surrounding the lesion. (2) Pneumonia Current Visit: Yes Status: Acute Follow-up on bronchoscopy results and continue treatment with current antibiotics Qualifiers: Pneumonia type: due to unspecified organism Laterality: right Lung location: upper lobe of lung Qualified Code(s): J18.1 - Lobar pneumonia, unspecified organism (3) COPD (chronic obstructive pulmonary disease) Current Visit: Yes Status: Chronic Continue bronchodilators and started on Symbicort Qualifiers: COPD type: emphysema Emphysema type: panlobular Qualified Code(s): J43.1 - Panlobular emphysema (4) Tobacco abuse Current Visit: Yes Status: Chronic Advised patient to quit smoking and a stated he will not smoke tobacco again Subjective Principal diagnosis: Shortness of breath Interval history: Patient is feeling better status post bronchoscopy Objective PUL Vital signs: Last Vital Signs Temp 97.8 F 08/01/16 07:34 Pulse 70 08/01/16 07:34 Resp 18 08/01/16 07:34 BP 108/65 08/01/16 07:34 Pulse Ox 98 08/01/16 08:12 General appearance: no acute distress Eyes: nonicteric ENT: oropharynx moist Neck: supple, no lymphadenopathy Effort: normal Auscultation: bilateral: diminished breath sounds Percussion: bilateral: not dull Cardiovascular: regular rate and rhythm Gastrointestinal: normoactive bowel sounds, non-distended Extremities: no cyanosis normal mental status, non-focal exam mood appropriate Results - Laboratory Findings CBC and BMP: 08/01/16 03:09 08/01/16 01:33 PT/INR, D-dimer PT 12.5 Seconds (9.4-12.1) H 07/30/16 01:57 Abnormal lab findings: Abnormal lab results RBC 2.57 M/mcL (4.19-5.50) L 08/01/16 03:09 Hgb 8.1 g/dL (12.9-16.9) L 08/01/16 03:09 Hct 24.8 % (37.5-50.1) L 08/01/16 03:09 Plt Count 418 K/mcL (140-400) H 08/01/16 03:09 MPV 8.6 fL (9.4-12.4) L 08/01/16 03:09 Neutrophils # 9.3 K/mcL (1.6-8.9) H 08/01/16 03:09 Lymphocytes # 0.4 K/mcL (0.6-4.6) L 08/01/16 03:09 PT 12.5 Seconds (9.4-12.1) H 07/30/16 01:57 APTT 37.7 Seconds (26.0-36.0) H 07/30/16 01:57 Sodium 130 mEq/L (136-145) L 08/01/16 01:33 Chloride 97 mEq/L (98-109) L 08/01/16 01:33 Creatinine 0.65 mg/dL (0.72-1.25) L 08/01/16 01:33 Glucose 110 mg/dL (70-99) H 08/01/16 01:33 Calculated Osmolality 270 (280-300) L 08/01/16 01:33 Magnesium 1.1 mg/dL (1.6-2.6) L 08/01/16 01:33 Iron 44 mcg/dL (65-175) L 07/31/16 03:38 % Saturation 17 % (20-55) L 07/31/16 03:38 Ferritin 723 ng/ml (22-275) H 07/31/16 03:38 Prealbumin 16.0 mg/dL (18.0-45.0) L 07/31/16 03:38 Vancomycin Trough 5.4 mcg/mL (10-20) L 08/01/16 01:33 - Microbiology Findings Microbiology Findings: Microbiology, Last 48 Hours 07/31/16 10:45 Gram Stain - Final Right Upper Lobe Lung 07/31/16 10:45 Gram Stain - Final Left Upper Lobe Lung 07/30/16 01:57 Blood Culture - Preliminary Peripheral Venipuncture No growth. 07/30/16 01:50 Blood Culture - Preliminary Peripheral Venipuncture No growth. - Clinical Findings Intake & Output: Intake & Output 07/31/16 08/01/16 08/01/16 23:59 07:59 15:59 Intake Total 240 / 240 400 / 400 Balance 240 / 240 400 / 400 Weight 55.2 kg Consult Discharge Plan - Plan [facility]errals: [facility] [Primary Care Provider[facility] -
[2016-08-01] MEDS: Methocarbamol 750 MG TABLET PO PRN ×2 (11:56→20:58)
--- NOTE | 2016-08-01 14:28 | Internal Med Progress Note ---
Date of Encounter: 08/01/16 Time of Encounter: 14:26 - Assessment and plan (1) Mass of lung Current Visit: Yes Status: Acute Assessment and plan: Pulmonary consultation appreciated with Dr. Lange Status post diagnostic bronchoscopy due to highly suspicious lesions found on CT chest Awaiting records from [facility] (2) Pneumonia Current Visit: Yes Status: Acute Assessment and plan: Leukocytosis persists but improved from previous day Continue vancomycin and Levaquin at this time Follow-up blood cultures Qualifiers: Pneumonia type: due to unspecified organism Laterality: right Lung location: upper lobe of lung Qualified Code(s): J18.1 - Lobar pneumonia, unspecified organism (3) COPD (chronic obstructive pulmonary disease) Current Visit: Yes Status: Chronic Assessment and plan: Not in acute exacerbation Continue bronchodilator support Continue O2 supplementation as needed Qualifiers: COPD type: emphysema Emphysema type: panlobular Qualified Code(s): J43.1 - Panlobular emphysema (4) Tobacco abuse Current Visit: Yes Status: Chronic Assessment and plan: Smoking cessation counseling provided patient states he will try to quit this time Nicotine replacement therapy provided (5) Chronic pain Current Visit: Yes Status: Chronic Assessment and plan: Continue home medications appears to be on methadone as part of his home medications Qualifiers: Chronic pain type: other chronic pain Qualified Code(s): G89.29 - Other chronic pain (6) DVT prophylaxis Current Visit: Yes Status: Acute Assessment and plan: Heparin subcutaneous (7) Anemia Current Visit: Yes Status: Acute Assessment and plan: Likely of chronic disease given iron study results H&H low but acceptable No active bleeding noted at this time Continue to monitor We will transfuse as needed Qualifiers: Anemia type: unspecified type Qualified Code(s): D64.9 - Anemia, unspecified (8) Hypomagnesemia Current Visit: Yes Status: Acute Assessment and plan: Mg supplemented continue to monitor electrolytes and replace as needed - Subjective Interval history: Patient seen and examined at bedside. S/P bronchoscopy on 07/31/16. Reports of diffuse body aches worse in the back, which are chronic in nature. Denies any shortness of breath or chest pain at this time. - Constitutional Vitals: Temp Pulse Resp BP Pulse Ox 98.0 F 65 17 103/62 98 08/01/16 11:41 08/01/16 11:41 08/01/16 11:41 08/01/16 11:57 08/01/16 11:41 General appearance: Present: A&O X 3, no acute distress, underweight, answers questions appropriately - Head Head exam: Present: atraumatic, normocephalic - Eye Eye exam: Present: conjuntiva pink, sclera anicteric - Respiratory Respiratory exam: Present: decreased breath sounds. Absent: respiratory distress, wheezes - Cardiovascular Cardiovascular exam: Present: RRR, +S1, +S2. Absent: diastolic murmur, gallop, rubs, systolic murmur - GI/Abdominal GI/Abdominal exam: Present: normal bowel sounds, soft, no peritoneal signs. Absent: distended, tenderness - Extremities Exam Extremities exam: Present: warm, radial pulses palpable and symetrical. Absent : calf tenderness, cyanotic, pedal edema - Neurological Exam Neurological exam: Present: alert, oriented X3, no focal deficits - Psychiatric Psychiatric exam: Present: normal affect, normal mood Internal Medicine: Result - Labs CBC & Chem 7: 08/01/16 03:09 08/01/16 01:33 Labs: Short CBC 08/01/16 08/01/16 Range/Units 01:33 03:09 WBC 10.3 10.6 (4.3-11.1) K/mcL Hgb 7.5 L D 8.1 L (12.9-16.9) g/dL Hct 22.9 L 24.8 L (37.5-50.1) % Plt Count 396 418 H (140-400) K/mcL Neutrophils # 8.9 9.3 H (1.6-8.9) K/mcL BMP 08/01/16 01:33 Sodium 130 L Potassium 4.1 Chloride 97 L Carbon Dioxide 24 BUN 12 Creatinine 0.65 L Glucose 110 H Calcium 8.6 - ABG Interpretation ABG results: PT/INR, D-dimer PT 12.5 Seconds (9.4-12.1) H 07/30/16 01:57 Consult Discharge Plan - Plan [facility]errals: [facility] [Primary Care Provider] -
[2016-08-01] MEDS: Acetaminophen 325 MG TABLET PO PRN (14:47)
[2016-08-01] MEDS: Budesonide/Formoterol 160/4.5 MDI IH SCH (20:16)
[2016-08-01] MEDS: Sennosides 8.6 MG TABLET PO SCH (20:59)
[2016-08-02 04:47] LABS: Hematocrit 23.7 % (37.5-50.1); Hemoglobin 7.8 g/dL (12.9-16.9); Mean Corpuscular HGB Conc 32.9 g/dL (31.6-35.5); Mean Corpuscular Hemoglobin 31.7 pg (28.0-33.3); Mean Corpuscular Volume 96.3 fL (83.0-100.0); Mean Platelet Volume 8.6 fL (9.4-12.4); Platelet Count 363 K/mcL (140-400); Red Blood Count 2.46 M/mcL (4.19-5.50); Red Cell Distribution Width 13.1 % (11.5-14.5); Segmented Neutrophils % 89.5 %
[2016-08-02 04:48] LABS: Basophils % 0.3 %; Eosinophils # 0.1 K/mcL (0.0-0.6); Eosinophils % 0.4 %; Immature Granulocytes % 0.4 % (0-4); Lymphocytes # 0.3 K/mcL (0.6-4.6); Lymphocytes % 2.9 %; Monocytes # 0.7 K/mcL (0.0-1.3); Monocytes % 6.5 %; Neutrophils # 10.2 K/mcL (1.6-8.9)
[2016-08-02 05:04] LABS: BUN/Creatinine Ratio 17 (6-26); Blood Urea Nitrogen 11 mg/dL (8-26); Calcium 8.5 mg/dL (8.6-10.8); Carbon Dioxide 23 mEq/L (19-29); Chloride 93 mEq/L (98-109); Glucose 97 mg/dL (70-99); Magnesium 1.3 mg/dL (1.6-2.6); Osmolality,Calculated 263 (280-300); Phosphorous 2.7 mg/dL (2.3-4.7); Potassium 4.3 mEq/L (3.5-4.5); Sodium 127 mEq/L (136-145); eGFR For African Americans > 60 (> 60); eGFR For Non-African Americans > 60 (> 60)
[2016-08-02] MEDS: Vancomycin 1,250 MG in D5% in Water 250 ML IVPB SCH ×2 (06:09→16:04)
[2016-08-02] MEDS: *HR* Methadone 10 MG TABLET PO SCH ×3 (06:10→21:05)
[2016-08-02] MEDS: *HR* Heparin 5,000 UNIT/ML VIAL SQ SCH ×2 (06:10→18:41)
[2016-08-02] MEDS ORDERED: Magnesium Sulfate 2 GM in D5% in Water 100 ML IVPB ONE (08:22)
[2016-08-02] MEDS: Levofloxacin 750 MG/150 ML 750 MG/150 ML BAG IVPB SCH (10:20)
[2016-08-02] MEDS: Nicotine 21 MG PATCH.TD24 TD SCH (10:24)
[2016-08-02] MEDS: Lisinopril 20 MG TABLET PO SCH ×2 (10:26→21:06)
[2016-08-02] MEDS: BuPROPion SR (12 HR) 150 MG TABLET PO SCH ×2 (10:26→21:06)
[2016-08-02] MEDS: Famotidine 20 MG TABLET PO SCH ×2 (10:26→21:06)
[2016-08-02] MEDS: Loratadine 10 MG TABLET PO SCH (10:26)
[2016-08-02] MEDS: Aspirin Enteric Coated 81 MG Tablet PO SCH (10:27)
[2016-08-02] MEDS: Artificial Tears SOLN 15 ML BOTTLE OP SCH ×4 (10:27→23:38)
[2016-08-02] MEDS: Folic Acid 1 MG TABLET PO SCH (10:27)
[2016-08-02] MEDS: amLODIPine 5 MG TABLET PO SCH (10:27)
[2016-08-02] MEDS: Ascorbic Acid 500 MG TABLET PO SCH (10:27)
[2016-08-02] MEDS: Budesonide/Formoterol 160/4.5 MDI IH SCH ×2 (10:48→20:24)
[2016-08-02] MEDS: Beclomethasone 80mcg MDI IH SCH (10:48)
[2016-08-02] MEDS ORDERED: 0.9 % Sodium Chloride 250 ML IVC PRN (16:42)
--- NOTE | 2016-08-02 16:53 | Internal Med Progress Note ---
Date of Encounter: 08/02/16 Time of Encounter: 15:55 - Assessment and plan (1) Mass of lung Current Visit: Yes Status: Acute Assessment and plan: Pulmonary consultation appreciated with Dr. Lange Status post diagnostic bronchoscopy due to highly suspicious lesions found on CT chest awaiting cytology results (2) Pneumonia Current Visit: Yes Status: Acute Assessment and plan: Leukocytosis persists Continue vancomycin and Levaquin at this time Follow-up blood cultures will re-evaluate in am, given worsening leukocytosis will continue treatment with IV abx for another day Qualifiers: Pneumonia type: due to unspecified organism Laterality: right Lung location: upper lobe of lung Qualified Code(s): J18.1 - Lobar pneumonia, unspecified organism (3) COPD (chronic obstructive pulmonary disease) Current Visit: Yes Status: Chronic Assessment and plan: Not in acute exacerbation Continue bronchodilator support Continue O2 supplementation as needed Qualifiers: COPD type: emphysema Emphysema type: panlobular Qualified Code(s): J43.1 - Panlobular emphysema (4) Tobacco abuse Current Visit: Yes Status: Chronic Assessment and plan: Smoking cessation counseling provided patient states he will try to quit this time Nicotine replacement therapy provided (5) Chronic pain Current Visit: Yes Status: Chronic Assessment and plan: Continue home medications appears to be on methadone as part of his home medications Qualifiers: Chronic pain type: other chronic pain Qualified Code(s): G89.29 - Other chronic pain (6) DVT prophylaxis Current Visit: Yes Status: Acute Assessment and plan: Heparin subcutaneous (7) Anemia Current Visit: Yes Status: Acute Assessment and plan: Likely of chronic disease given iron study results H&H low but acceptable No active bleeding noted at this time Continue to monitor We will transfuse as needed Qualifiers: Anemia type: unspecified type Qualified Code(s): D64.9 - Anemia, unspecified (8) Hypomagnesemia Current Visit: Yes Status: Acute Assessment and plan: Mg supplemented continue to monitor electrolytes and replace as needed - Subjective Interval history: Patient seen and examined at bedside. S/P bronchoscopy on 07/31/16. Reports of diffuse body aches worse in the back, which are chronic in nature. Denies any shortness of breath or chest pain at this time. Reports of participating with physical therapy and states he feels weak today. Noted to have worsening leukocytosis. Repeat CXR consistent with consolidation concerning for neoplasm superimposed with PNA. - Constitutional Vitals: Temp Pulse Resp BP Pulse Ox 98.0 F 79 16 89/52 96 08/02/16 15:50 08/02/16 15:50 08/02/16 15:50 08/02/16 15:50 08/02/16 15:50 General appearance: Present: A&O X 3, no acute distress, underweight, answers questions appropriately - Head Head exam: Present: atraumatic, normocephalic - Eye Eye exam: Present: PERRL, conjuntiva pink, sclera anicteric - Respiratory Respiratory exam: Absent: respiratory distress, wheezes (coarse breath sounds) - Cardiovascular Cardiovascular exam: Present: RRR, +S1, +S2 - GI/Abdominal GI/Abdominal exam: Present: normal bowel sounds, soft. Absent: distended, tenderness - Extremities Exam Extremities exam: Present: warm, radial pulses palpable and symetrical. Absent : calf tenderness, cyanotic, pedal edema - Neurological Exam Neurological exam: Present: alert, oriented X3, no focal deficits Internal Medicine: Result - Labs CBC & Chem 7: 08/02/16 03:49 08/02/16 03:49 Labs: Short CBC 08/02/16 Range/Units 03:49 WBC 11.4 H (4.3-11.1) K/mcL Hgb 7.8 L (12.9-16.9) g/dL Hct 23.7 L (37.5-50.1) % Plt Count 363 (140-400) K/mcL Neutrophils # 10.2 H (1.6-8.9) K/mcL BMP 08/02/16 03:49 Sodium 127 L Potassium 4.3 Chloride 93 L Carbon Dioxide 23 BUN 11 Creatinine 0.66 L Glucose 97 Calcium 8.5 L - ABG Interpretation ABG results: PT/INR, D-dimer PT 12.5 Seconds (9.4-12.1) H 07/30/16 01:57 - Impressions Impressions Chest X-Ray 08/02/16 08:22 IMPRESSION: 1. Diffuse consolidative and nodular opacities throughout the bilateral upper lobes, right greater than left, are felt to most likely represent a combination of acute multifocal pneumonia superimposed on chronic upper lobe parenchymal scarring. However, the multinodular and somewhat cavitary appearance of these opacities is concerning for a superimposed neoplastic process, primary or metastatic. Consider formal pulmonary consultation and bronchoscopy. 2. Multifocal ground-glass opacity within the mid and lower right lung zones most likely represents additional multifocal pneumonia, though lymphangitic spread of tumor could have this appearance. D/ / Mitchel Horvath MD / Mitchel Horvath MD Interpreting Provider: Mitchel Horvath MD Consult Discharge Plan - Plan Referrals: [facility] [Primary Care Provider] -
[2016-08-02] MEDS: Acetaminophen 325 MG TABLET PO PRN (18:42)
[2016-08-02] MEDS: Sennosides 8.6 MG TABLET PO SCH (21:05)
[2016-08-03] MEDS: *HR* Methadone 10 MG TABLET PO SCH ×3 (04:35→21:07)
[2016-08-03] MEDS: *HR* Heparin 5,000 UNIT/ML VIAL SQ SCH (04:36)
[2016-08-03] MEDS: Vancomycin 1,250 MG in D5% in Water 250 ML IVPB SCH ×2 (04:36→15:04)
[2016-08-03 08:52] LABS: Basophils % 0.1 %; Eosinophils # 0.1 K/mcL (0.0-0.6); Eosinophils % 0.8 %; Hematocrit 19.8 % (37.5-50.1); Hemoglobin 6.5 g/dL (12.9-16.9); Immature Granulocytes % 0.6 % (0-4); Lymphocytes # 0.3 K/mcL (0.6-4.6); Lymphocytes % 2.3 %; Mean Corpuscular HGB Conc 32.8 g/dL (31.6-35.5); Mean Corpuscular Hemoglobin 31.4 pg (28.0-33.3); Mean Corpuscular Volume 95.7 fL (83.0-100.0); Mean Platelet Volume 8.5 fL (9.4-12.4); Monocytes # 0.6 K/mcL (0.0-1.3); Monocytes % 5.2 %; Neutrophils # 9.9 K/mcL (1.6-8.9); Platelet Count 285 K/mcL (140-400); Red Blood Count 2.07 M/mcL (4.19-5.50); Red Cell Distribution Width 13.2 % (11.5-14.5)
[2016-08-03 09:13] LABS: BUN/Creatinine Ratio 17 (6-26); Blood Urea Nitrogen 13 mg/dL (8-26); Calcium 8.5 mg/dL (8.6-10.8); Carbon Dioxide 24 mEq/L (19-29); Chloride 95 mEq/L (98-109); Glucose 109 mg/dL (70-99); Magnesium 1.3 mg/dL (1.6-2.6); Osmolality,Calculated 267 (280-300); Phosphorous 3.5 mg/dL (2.3-4.7); Potassium 4.6 mEq/L (3.5-4.5); Sodium 128 mEq/L (136-145); eGFR For African Americans > 60 (> 60); eGFR For Non-African Americans > 60 (> 60)
[2016-08-03] MEDS: Levofloxacin 750 MG/150 ML 750 MG/150 ML BAG IVPB SCH (10:13)
[2016-08-03] MEDS: Nicotine 21 MG PATCH.TD24 TD SCH (10:13)
[2016-08-03] MEDS: amLODIPine 5 MG TABLET PO SCH ×2 (10:18→10:24)
[2016-08-03] MEDS: Folic Acid 1 MG TABLET PO SCH (10:18)
[2016-08-03] MEDS: Ascorbic Acid 500 MG TABLET PO SCH (10:18)
[2016-08-03] MEDS: Loratadine 10 MG TABLET PO SCH (10:18)
[2016-08-03] MEDS: Aspirin Enteric Coated 81 MG Tablet PO SCH (10:18)
[2016-08-03] MEDS: Famotidine 20 MG TABLET PO SCH ×2 (10:18→21:06)
[2016-08-03] MEDS: BuPROPion SR (12 HR) 150 MG TABLET PO SCH ×2 (10:18→21:07)
[2016-08-03] MEDS: Lisinopril 20 MG TABLET PO SCH ×3 (10:18→21:07)
[2016-08-03] MEDS: Artificial Tears SOLN 15 ML BOTTLE OP SCH ×4 (10:19→21:07)
[2016-08-03] MEDS: Methocarbamol 750 MG TABLET PO PRN ×2 (10:37→21:12)
[2016-08-03] MEDS: Budesonide/Formoterol 160/4.5 MDI IH SCH ×2 (11:50→20:04)
[2016-08-03] MEDS ORDERED: Magnesium Sulfate 2 GM in D5% in Water 100 ML IVPB ONE (12:29)
--- NOTE | 2016-08-03 15:43 | Internal Med Progress Note ---
Date of Encounter: 08/03/16 Time of Encounter: 15:41 - Assessment and plan (1) Anemia Current Visit: Yes Status: Acute Assessment and plan: Likely of chronic disease given iron study results drop in H&H noted will transfuse 2units PRBCs today No active bleeding noted at this time however will obtain stool occult to r/o GI bleed Continue to monitor Qualifiers: Anemia type: unspecified type Qualified Code(s): D64.9 - Anemia, unspecified (2) Mass of lung Current Visit: Yes Status: Acute Assessment and plan: Pulmonary consultation appreciated with Dr. Lange Status post diagnostic bronchoscopy due to highly suspicious lesions found on CT chest awaiting cytology results (3) Pneumonia Current Visit: Yes Status: Acute Assessment and plan: Leukocytosis resolved Continue vancomycin and Levaquin at this time Follow-up blood cultures Qualifiers: Pneumonia type: due to unspecified organism Laterality: right Lung location: upper lobe of lung Qualified Code(s): J18.1 - Lobar pneumonia, unspecified organism (4) COPD (chronic obstructive pulmonary disease) Current Visit: Yes Status: Chronic Assessment and plan: Not in acute exacerbation Continue bronchodilator support Continue O2 supplementation as needed Qualifiers: COPD type: emphysema Emphysema type: panlobular Qualified Code(s): J43.1 - Panlobular emphysema (5) Tobacco abuse Current Visit: Yes Status: Chronic Assessment and plan: Smoking cessation counseling provided patient states he will try to quit this time Nicotine replacement therapy provided (6) Chronic pain Current Visit: Yes Status: Chronic Assessment and plan: Continue home medications appears to be on methadone as part of his home medications Qualifiers: Chronic pain type: other chronic pain Qualified Code(s): G89.29 - Other chronic pain (7) DVT prophylaxis Current Visit: Yes Status: Acute Assessment and plan: IPCD (8) Hypomagnesemia Current Visit: Yes Status: Acute Assessment and plan: Mg supplemented continue to monitor electrolytes and replace as needed - Subjective Interval history: Patient seen and examined at bedside. S/P bronchoscopy on 07/31/16. Resting comfortably in bed and reports of feeling slightly better compared to the previous day. Noted to have a drop in H&H. We will transfuse 2 units PRBCs. Will obtain stool occult to rule out any GI bleed. - Constitutional Vitals: Temp Pulse Resp BP Pulse Ox 98.2 F 85 15 100/53 98 08/03/16 15:39 08/03/16 15:39 08/03/16 15:39 08/03/16 15:39 08/03/16 15:39 General appearance: Present: A&O X 3, no acute distress, underweight, answers questions appropriately - Head Head exam: Present: atraumatic, normocephalic - Eye Eye exam: Present: normal appearance, conjuntiva pink, sclera anicteric - Respiratory Respiratory exam: Absent: respiratory distress, wheezes Additional comments: equal air entry bilaterally - Cardiovascular Cardiovascular exam: Present: RRR, +S1, +S2 - GI/Abdominal GI/Abdominal exam: Present: normal bowel sounds, soft. Absent: distended, tenderness - Extremities Exam Extremities exam: Present: warm, radial pulses palpable and symetrical. Absent : calf tenderness, cyanotic, pedal edema - Neurological Exam Neurological exam: Present: alert, oriented X3 - Psychiatric Psychiatric exam: Present: normal affect, normal mood Internal Medicine: Result - Labs CBC & Chem 7: 08/03/16 08:31 08/03/16 08:31 Labs: Short CBC 08/03/16 Range/Units 08:31 WBC 10.9 (4.3-11.1) K/mcL Hgb 6.5 L (12.9-16.9) g/dL Hct 19.8 L (37.5-50.1) % Plt Count 285 (140-400) K/mcL Neutrophils # 9.9 H (1.6-8.9) K/mcL BMP 08/03/16 08:31 Sodium 128 L Potassium 4.6 H Chloride 95 L Carbon Dioxide 24 BUN 13 Creatinine 0.76 Glucose 109 H Calcium 8.5 L - ABG Interpretation ABG results: PT/INR, D-dimer PT 12.5 Seconds (9.4-12.1) H 07/30/16 01:57 Consult Discharge Plan - Plan Referrals: Alix Mora MD [Partnered Physician] - 08/11/16 8:30 am [facility],PCP [Primary Care Provider] - 08/09/16 1:00 pm
[2016-08-03] MEDS: Lactulose Oral Soln 20 GM/30 ML UDC PO PRN (17:20)
[2016-08-03] MEDS: Sennosides 8.6 MG TABLET PO SCH (21:06)
[2016-08-03] MEDS: Magnesium Oxide 400 MG TABLET PO SCH (21:06)
[2016-08-04] MEDS ORDERED: 0.9 % Sodium Chloride 250 ML ONE (00:22)
[2016-08-04] MEDS: Lactulose Oral Soln 20 GM/30 ML UDC PO PRN (01:04)
[2016-08-04] MEDS: Vancomycin 1,250 MG in D5% in Water 250 ML IVPB SCH (03:58)
[2016-08-04] MEDS: *HR* Methadone 10 MG TABLET PO SCH ×3 (05:54→20:22)
[2016-08-04 07:22] LABS: BUN/Creatinine Ratio 18 (6-26); Blood Urea Nitrogen 13 mg/dL (8-26); Calcium 8.7 mg/dL (8.6-10.8); Carbon Dioxide 26 mEq/L (19-29); Chloride 95 mEq/L (98-109); Glucose 77 mg/dL (70-99); Magnesium 1.6 mg/dL (1.6-2.6); Osmolality,Calculated 267 (280-300); Phosphorous 3.3 mg/dL (2.3-4.7); Potassium 4.6 mEq/L (3.5-4.5); Sodium 129 mEq/L (136-145); eGFR For African Americans > 60 (> 60); eGFR For Non-African Americans > 60 (> 60)
[2016-08-04 07:30] LABS: Basophils % 0.3 %; Eosinophils # 0.1 K/mcL (0.0-0.6); Eosinophils % 1.1 %; Hematocrit 29.6 % (37.5-50.1); Lymphocytes # 0.3 K/mcL (0.6-4.6); Lymphocytes % 2.9 %; Mean Corpuscular HGB Conc 33.8 g/dL (31.6-35.5); Mean Corpuscular Hemoglobin 31.9 pg (28.0-33.3); Mean Corpuscular Volume 94.6 fL (83.0-100.0); Monocytes # 0.7 K/mcL (0.0-1.3); Neutrophils # 10.5 K/mcL (1.6-8.9); Platelet Count 336 K/mcL (140-400); Red Blood Count 3.13 M/mcL (4.19-5.50); Red Cell Distribution Width 13.8 % (11.5-14.5); Segmented Neutrophils % 88.7 %
--- NOTE | 2016-08-04 07:38 | Pulmonology Progress Note ---
Date of Encounter: 08/04/16 Time of Encounter: 07:38 Assessment and Plan (1) Mass of lung Current Visit: Yes Status: Acute Preliminary pathology results negative for malignancy however patient still at very high risk for malignancy, likely needing additional procedure to rule out possibility of a primary lung cancer Recommend repeat CT scan within 1 month's time of discharge with "super dimensional protocol" We will need follow-up in pulmonary clinic within [address] (2) COPD (chronic obstructive pulmonary disease) Current Visit: Yes Status: Chronic Agree with current management Qualifiers: COPD type: emphysema Emphysema type: panlobular Qualified Code(s): J43.1 - Panlobular emphysema (3) Pneumonia Current Visit: Yes Status: Suspected Would treat for 7-8 days total and likely de-escalate to respiratory fluoroquinolone taste upon clinical course Qualifiers: Pneumonia type: due to Pneumococcus Laterality: right Lung location: middle lobe of lung Qualified Code(s): J13 - Pneumonia due to Streptococcus pneumoniae Subjective Principal diagnosis: Shortness of breath Interval history: Patient feeling remarkably better since time of admission Objective PUL Vital signs: Last Vital Signs Temp 98.0 F 08/04/16 07:00 Pulse 73 08/04/16 07:00 Resp 16 08/04/16 07:00 BP 122/69 08/04/16 07:00 Pulse Ox 97 08/04/16 07:00 General appearance: no acute distress Eyes: nonicteric ENT: oropharynx moist Auscultation: bilateral: diminished breath sounds, rhonchi (Scattered rhonchi) Cardiovascular: regular rate and rhythm Gastrointestinal: normoactive bowel sounds Extremities: no edema normal mental status, non-focal exam Results - Laboratory Findings CBC and BMP: 08/04/16 06:07 08/04/16 06:07 PT/INR, D-dimer PT 12.5 Seconds (9.4-12.1) H 07/30/16 01:57 Abnormal lab findings: Abnormal lab results WBC 11.9 K/mcL (4.3-11.1) H 08/04/16 06:07 RBC 3.13 M/mcL (4.19-5.50) L 08/04/16 06:07 Hgb 10.0 g/dL (12.9-16.9) L D 08/04/16 06:07 Hct 29.6 % (37.5-50.1) L 08/04/16 06:07 MPV 9.0 fL (9.4-12.4) L 08/04/16 06:07 Neutrophils # 10.5 K/mcL (1.6-8.9) H 08/04/16 06:07 Lymphocytes # 0.3 K/mcL (0.6-4.6) L 08/04/16 06:07 PT 12.5 Seconds (9.4-12.1) H 07/30/16 01:57 APTT 37.7 Seconds (26.0-36.0) H 07/30/16 01:57 Sodium 129 mEq/L (136-145) L 08/04/16 06:07 Potassium 4.6 mEq/L (3.5-4.5) H 08/04/16 06:07 Chloride 95 mEq/L (98-109) L 08/04/16 06:07 Calculated Osmolality 267 (280-300) L 08/04/16 06:07 Iron 44 mcg/dL (65-175) L 07/31/16 03:38 % Saturation 17 % (20-55) L 07/31/16 03:38 Ferritin 723 ng/ml (22-275) H 07/31/16 03:38 Prealbumin 16.0 mg/dL (18.0-45.0) L 07/31/16 03:38 Fluid Appearance Cloudy (Clear) A 07/31/16 10:45 Vancomycin Trough 5.4 mcg/mL (10-20) L 08/01/16 01:33 - Microbiology Findings Microbiology Findings: Microbiology, Last 48 Hours 07/30/16 01:57 Blood Culture - Final Peripheral Venipuncture No growth. 07/30/16 01:50 Blood Culture - Final Peripheral Venipuncture No growth. 07/31/16 10:45 Respiratory Culture - Final Left Upper Lobe Lung Normal upper respiratory tract fredi. No apparent pathogens isolated. 07/31/16 10:45 Gram Stain - Final Right Upper Lobe Lung Respiratory Culture - Final Normal upper respiratory tract fredi. No apparent pathogens isolated. - Clinical Findings Intake & Output: Intake & Output 08/03/16 08/03/16 08/04/16 15:59 23:59 07:59 Intake Total 360 / 360 600 / 600 350 / 350 Balance 360 / 360 600 / 600 350 / 350 Weight 54.4 kg Consult Discharge Plan - Plan Referrals: Alix Mora MD [Partnered Physician] - 08/11/16 8:30 am [facility] [Primary Care Provider] - 08/09/16 1:00 pm
[2016-08-04] MEDS: Budesonide/Formoterol 160/4.5 MDI IH SCH ×2 (07:44→21:39)
[2016-08-04] MEDS ORDERED: Aminoglycoside Consult 1 EACH MC ONE (08:00)
[2016-08-04] MEDS: Nicotine 21 MG PATCH.TD24 TD SCH (09:12)
[2016-08-04] MEDS: Levofloxacin 750 MG/150 ML 750 MG/150 ML BAG IVPB SCH (09:13)
[2016-08-04] MEDS: Famotidine 20 MG TABLET PO SCH ×2 (09:17→20:22)
[2016-08-04] MEDS: amLODIPine 5 MG TABLET PO SCH (09:17)
[2016-08-04] MEDS: BuPROPion SR (12 HR) 150 MG TABLET PO SCH ×2 (09:17→20:22)
[2016-08-04] MEDS: Methocarbamol 750 MG TABLET PO PRN ×2 (09:17→17:32)
[2016-08-04] MEDS: Folic Acid 1 MG TABLET PO SCH (09:22)
[2016-08-04] MEDS: Aspirin Enteric Coated 81 MG Tablet PO SCH (09:22)
[2016-08-04] MEDS: Ascorbic Acid 500 MG TABLET PO SCH (09:22)
[2016-08-04] MEDS: Lisinopril 20 MG TABLET PO SCH ×2 (09:22→20:22)
[2016-08-04] MEDS: Loratadine 10 MG TABLET PO SCH (09:23)
[2016-08-04] MEDS: Magnesium Oxide 400 MG TABLET PO SCH ×2 (09:23→20:21)
[2016-08-04] MEDS: Artificial Tears SOLN 15 ML BOTTLE OP SCH ×4 (09:24→20:22)
--- NOTE | 2016-08-04 14:05 | Discharge Summary ---
Date of Encounter: 08/04/16 Time of Encounter: 13:57 - Discharge Diagnosis (1) Anemia Priority: Secondary Status: Acute Qualifiers: Anemia type: unspecified type Qualified Code(s): D64.9 - Anemia, unspecified (2) Mass of lung Priority: Secondary Status: Acute (3) Pneumonia Priority: Primary Status: Acute Qualifiers: Pneumonia type: due to unspecified organism Laterality: right Lung location: upper lobe of lung Qualified Code(s): J18.1 - Lobar pneumonia, unspecified organism (4) COPD (chronic obstructive pulmonary disease) Priority: Secondary Status: Chronic Qualifiers: COPD type: emphysema Emphysema type: panlobular Qualified Code(s): J43.1 - Panlobular emphysema (5) Tobacco abuse Priority: Secondary Status: Chronic (6) Chronic pain Priority: Secondary Status: Chronic Qualifiers: Chronic pain type: other chronic pain Qualified Code(s): G89.29 - Other chronic pain (7) DVT prophylaxis Priority: Secondary Status: Acute (8) Hypomagnesemia Priority: Secondary Status: Acute - Discharge Medications Prescriptions: Levofloxacin [Levaquin] 750 mg PO DAILY #2 tablet Home Medications: Albuterol Sulfate [Albuterol Inhaler] 2 puff IH Q6HR PRN 07/30/16 [History] Amlodipine Besylate 10 mg PO DAILY 07/30/16 [History] Ascorbic Acid [Vitamin C with Elham Hips] 500 mg PO DAILY 07/30/16 [History] Aspirin [Lo-Dose Aspirin EC] 81 mg PO DAILY 07/30/16 [History] Bupropion HCl [Zyban] 150 mg PO BID 07/30/16 [History] Carboxymethylcellulos/Glycerin [Refresh Optive Gel Eye Drops] 1 drop OP QID 08/13 [History] Cholecalciferol (D-3) [Vitamin D] 2,000 unit PO DAILY 07/30/16 [History] Diphenhydramine HCl [Nighttime Sleep Aid] 50 mg PO HS PRN 07/30/16 [History] Docusate Sodium [Stool Softener] 100 mg PO BID 07/30/16 [History] Etodolac [Lodine] 400 mg PO TID PRN 07/30/16 [History] Ferrous Sulfate [Iron] 325 mg PO DAILY 07/30/16 [History] Fluticasone Propionate [Flovent Diskus] 100 mcg IH DAILY 07/30/16 [History] Folic Acid 1 mg PO DAILY 07/30/16 [History] Guaifenesin [Mucus Relief] 400 mg PO BID 07/30/16 [History] Lactulose 10 gm PO DAILY 07/30/16 [History] Lisinopril [Zestril] 20 mg PO BID 07/30/16 [History] Loratadine [Allergy Relief] 10 mg PO DAILY 07/30/16 [History] Methadone 10 mg PO Q8HR 07/30/16 [History] Methocarbamol [Robaxin-750] 1.5 g PO BID PRN 07/30/16 [History] Metoprolol [Lopressor] 25 mg PO BID 07/30/16 [History] Multivitamin [One Daily Essential] 1 tab PO DAILY 07/30/16 [History] Nicotine Patch [Nicoderm] 21 mg TD DAILY 07/30/16 [History] Nicotine Polacrilex [Nicotine Lozenge] 2 mg BC Q2H PRN 07/30/16 [History] Quetiapine Fumarate [Seroquel] 150 mg PO HS 07/30/16 [History] Ranitidine HCl [Acid Hardware Test Engineer] 150 mg PO BID 07/30/16 [History] Sennosides [Senokot] 17.2 mg PO HS 07/30/16 [History] Sertraline [Zoloft] 100 mg PO DAILY 07/30/16 [History] Simvastatin [Zocor] 10 mg PO HS 07/30/16 [History] Sodium Chloride 2 gm PO TID 07/30/16 [History] Trazodone HCl 75 mg PO HS PRN 07/30/16 [History] Levofloxacin [Levaquin] 750 mg PO DAILY #2 tablet 08/04/16 [Rx] Allergies/Adverse Reactions: Allergies Penicillins Allergy (Verified 07/30/16 10:55) See Comments UNKNOWN REACTION- LISTED ON PATIENT[facility]S [facility] MEDICATION [facility] Date of admission: 07/30/16 00:42 Primary care physician: PCP [facility] Consults: 07/30/16 01:25 Consult to Pulmonology [CONS] Routine Consulting Provider: [facility] Reason for Consult: RIght lung mass Time Notified: 01:25 Call Completed: No 07/30/16 08:27 Consult to Nutrition [CONS] Routine Comment: Consulting Provider: NUTRITION Reason for Dietary Consult: Supplemental Nutrition 07/31/16 10:36 Consult to Wound Care [CONS] Routine Reason for Consult: Stage II pressure area to left inner buttocks, Stage II pressure area to right middle buttocks, black scabbed DTI vs pressure to right upper post heel, bilat heels boggy/sore but blanchable Call Completed: No 08/01/16 08:34 Consult to Physical Therapy [CONS] Routine Comment: Evaluate, develop and implement POC 08/03/16 13:54 Consult to Time Lock Expert [CONS] Routine Reason for SW Consult: Home health Discharging clinician: Elizabeth Spencer Anticipated date of discharge: 08/04/16 - Patient Status Disposition: Home Health Service Condition: Good Functional capacity at discharge: uses cane/walker Overall status at discharge: patient is back to baseline - Discharge Instructions Follow Up With: Alix Mora MD [Partnered Physician] - 08/11/16 8:30 am [place],PCP [Primary Care Provider] - 08/09/16 1:00 pm Additional Instructions: Please follow-up with your primary care physician within one week after discharge from the hospital Please follow-up with loading machine tool setter (Dr. Mora) within 1-2 weeks after discharge from the hospital. Dr. Mora will be able to go over your bronchoscopy results with you. Please continue oral antibiotics for 2 more days. Continue to use oxygen therapy at all times Please continue your home medications as prescribed by your primary care physician - Diet and Activity Activity: resume usual activities as tolerated Diet: advance to your usual diet Hospital course: Mr. Cuba is a 65 year old male with past medical history of COPD on home oxygen , hyperlipidemia, hypertension, PTSD, GERD, chronic tobacco abuse who was admitted for evaluation of shortness of breath, weight loss, right-sided chest pain. Patient was admitted with the diagnosis of pneumonia with a concern of malignancy. Patient was followed by pulmonary and under [address] Mora. Patient's presenting symptoms improved and he is currently saturating well on nasal cannula. His hospital course was further complicated with anemia requiring transfusions. At this time patient is hemodynamically stable, H&H within acceptable range. He will be discharged to home with follow up with PCP and Pulmonary. Time spent discussing smoking cessation with patient: 3 to 10 minutes - Time Spent with Patient Total time spent providing and/or coordinating discharge services: Less than 30 minutes - Constitutional Vitals: Temp Pulse Resp BP Pulse Ox 97.8 F 78 16 101/57 97 08/04/16 11:02 08/04/16 11:02 08/04/16 11:02 08/04/16 11:02 08/04/16 11:02 General appearance: Present: A&O X 3, no acute distress, underweight, answers questions appropriately - Head Head exam: Present: atraumatic, normocephalic - Eye Eye exam: Present: PERRL, conjuntiva pink, sclera anicteric - Respiratory Respiratory exam: Absent: respiratory distress, wheezes - Cardiovascular Cardiovascular exam: Present: RRR, +S1, +S2. Absent: diastolic murmur, gallop, rubs, systolic murmur - GI/Abdominal GI/Abdominal exam: Present: normal bowel sounds, soft, no peritoneal signs. Absent: distended, tenderness - Extremities Exam Extremities exam: Present: warm, radial pulses palpable and symetrical. Absent : calf tenderness, pedal edema, tenderness - Neurological Exam Neurological exam: Present: alert, oriented X3, no focal deficits
[2016-08-04] MEDS: Acetaminophen 325 MG TABLET PO PRN (17:36)
[2016-08-04] MEDS: Sennosides 8.6 MG TABLET PO SCH (20:21)
[2016-08-05] MEDS: *HR* Methadone 10 MG TABLET PO SCH ×2 (04:23→12:52)
[2016-08-05] MEDS: Acetaminophen 325 MG TABLET PO PRN ×2 (04:25→11:06)
[2016-08-05] MEDS: Budesonide/Formoterol 160/4.5 MDI IH SCH (07:54)
[2016-08-05 08:21] VITALS: BP 124/74
[2016-08-05] MEDS: Lisinopril 20 MG TABLET PO SCH (09:36)
[2016-08-05] MEDS: Folic Acid 1 MG TABLET PO SCH (09:36)
[2016-08-05] MEDS: Ascorbic Acid 500 MG TABLET PO SCH (09:36)
[2016-08-05] MEDS: Nicotine 21 MG PATCH.TD24 TD SCH (09:36)
[2016-08-05] MEDS: Magnesium Oxide 400 MG TABLET PO SCH (09:37)
[2016-08-05] MEDS: BuPROPion SR (12 HR) 150 MG TABLET PO SCH (09:37)
[2016-08-05] MEDS: Aspirin Enteric Coated 81 MG Tablet PO SCH (09:37)
[2016-08-05] MEDS: Famotidine 20 MG TABLET PO SCH (09:37)
[2016-08-05] MEDS: amLODIPine 5 MG TABLET PO SCH (09:37)
[2016-08-05] MEDS: Loratadine 10 MG TABLET PO SCH (09:38)
[2016-08-05] MEDS: Levofloxacin 750 MG/150 ML 750 MG/150 ML BAG IVPB SCH (09:38)
[2016-08-05] MEDS: Methocarbamol 750 MG TABLET PO PRN ×2 (09:45→16:25)
[2016-08-05] MEDS: Artificial Tears SOLN 15 ML BOTTLE OP SCH ×2 (09:48→12:52)
--- NOTE | 2016-08-05 14:18 | Physician Discharge Referral ---
Home Health/Hosp Referral Info Transfer to: Home Health Provider in Charge Post Discharge: PCP - Diagnosis (1) Anemia Priority: Secondary Status: Acute (2) Mass of lung Priority: Primary Status: Acute (3) Pneumonia Priority: Primary Status: Acute (4) COPD (chronic obstructive pulmonary disease) Priority: Secondary Status: Chronic (5) Tobacco abuse Priority: Secondary Status: Chronic (6) Chronic pain Priority: Secondary Status: Chronic (7) DVT prophylaxis Priority: Secondary Status: Acute (8) Hypomagnesemia Priority: Secondary Status: Acute - Respiratory Orders Smoking Cessation: Smoking cessation has been advised. For more information, call the [place] Tobacco Quit Line at 1-769-TMZD-NOW. - Services Needed Following services are medically necessary services: Nursing, Home Health Aide, Physical Therapy, Occupational Therapy - Transfer Medications Prescriptions: Levofloxacin [Levaquin] 750 mg PO DAILY #2 tablet Home Medications: Albuterol Sulfate [Albuterol Inhaler] 2 puff IH Q6HR PRN 07/30/16 [History] Amlodipine Besylate 10 mg PO DAILY 07/30/16 [History] Ascorbic Acid [Vitamin C with Elham Hips] 500 mg PO DAILY 07/30/16 [History] Aspirin [Lo-Dose Aspirin EC] 81 mg PO DAILY 07/30/16 [History] Bupropion HCl [Zyban] 150 mg PO BID 07/30/16 [History] Carboxymethylcellulos/Glycerin [Refresh Optive Gel Eye Drops] 1 drop OP QID 08/13 [History] Cholecalciferol (D-3) [Vitamin D] 2,000 unit PO DAILY 07/30/16 [History] Diphenhydramine HCl [Nighttime Sleep Aid] 50 mg PO HS PRN 07/30/16 [History] Docusate Sodium [Stool Softener] 100 mg PO BID 07/30/16 [History] Etodolac [Lodine] 400 mg PO TID PRN 07/30/16 [History] Ferrous Sulfate [Iron] 325 mg PO DAILY 07/30/16 [History] Fluticasone Propionate [Flovent Diskus] 100 mcg IH DAILY 07/30/16 [History] Folic Acid 1 mg PO DAILY 07/30/16 [History] Guaifenesin [Mucus Relief] 400 mg PO BID 07/30/16 [History] Lactulose 10 gm PO DAILY 07/30/16 [History] Lisinopril [Zestril] 20 mg PO BID 07/30/16 [History] Loratadine [Allergy Relief] 10 mg PO DAILY 07/30/16 [History] Methadone 10 mg PO Q8HR 07/30/16 [History] Methocarbamol [Robaxin-750] 1.5 g PO BID PRN 07/30/16 [History] Metoprolol [Lopressor] 25 mg PO BID 07/30/16 [History] Multivitamin [One Daily Essential] 1 tab PO DAILY 07/30/16 [History] Nicotine Patch [Nicoderm] 21 mg TD DAILY 07/30/16 [History] Nicotine Polacrilex [Nicotine Lozenge] 2 mg BC Q2H PRN 07/30/16 [History] Quetiapine Fumarate [Seroquel] 150 mg PO HS 07/30/16 [History] Ranitidine HCl [Acid Inspector Wire Rope] 150 mg PO BID 07/30/16 [History] Sennosides [Senokot] 17.2 mg PO HS 07/30/16 [History] Sertraline [Zoloft] 100 mg PO DAILY 07/30/16 [History] Simvastatin [Zocor] 10 mg PO HS 07/30/16 [History] Sodium Chloride 2 gm PO TID 07/30/16 [History] Trazodone HCl 75 mg PO HS PRN 07/30/16 [History] Levofloxacin [Levaquin] 750 mg PO DAILY #2 tablet 08/04/16 [Rx] Allergies/Adverse Reactions: Allergies Penicillins Allergy (Verified 07/30/16 10:55) See Comments UNKNOWN REACTION- LISTED ON [facility]IENT[facility]S [facility] Certification: Further, I certify that my clinical findings support that this patient is homebound (i.e. absences from home require considerable and taxing effort and are for medical reasons or sikh services or infrequently or short duration when for other reasons) because: Homebound Reason: Patient requires assistance of a person or device to safely leave home Attestation: My signature below is to certify that this patient is under my care and that I, or nurse practitioner, or a physician's optometrist assistant working with me, has a face-to -face encounter with this patient.
--- NOTE | 2016-08-05 14:24 | Internal Med Progress Note ---
Date of Encounter: 08/05/16 Time of Encounter: 14:21 - Assessment and plan (1) Anemia Current Visit: Yes Status: Acute Qualifiers: Anemia type: unspecified type Qualified Code(s): D64.9 - Anemia, unspecified (2) Mass of lung Current Visit: Yes Status: Acute (3) Pneumonia Current Visit: Yes Status: Acute Qualifiers: Pneumonia type: due to unspecified organism Laterality: right Lung location: upper lobe of lung Qualified Code(s): J18.1 - Lobar pneumonia, unspecified organism (4) COPD (chronic obstructive pulmonary disease) Current Visit: Yes Status: Chronic Qualifiers: COPD type: emphysema Emphysema type: panlobular Qualified Code(s): J43.1 - Panlobular emphysema (5) Tobacco abuse Current Visit: Yes Status: Chronic (6) Chronic pain Current Visit: Yes Status: Chronic Qualifiers: Chronic pain type: other chronic pain Qualified Code(s): G89.29 - Other chronic pain (7) DVT prophylaxis Current Visit: Yes Status: Acute (8) Hypomagnesemia Current Visit: Yes Status: Acute - Subjective Interval history: Patient is a 65y/o male who was admitted for management of PNA and concern for malignancy. He was discharged to home yesterday however his discharge was placed on hold as his home oxygen was not delivered. Patient will be discharged to home today with follow up with PCP and pulmonary. AT this time patient is resting in bed and reports of breathing comfortably on nasal cannula. No overnight issues were reported. He is to finish antibiotic course and steroids at home. patient demonstrates understanding of his diagnosis and agrees with the discharge plan. He is to wear oxygen at all times at home. Smoking cessation counseling provided, patient states he will try to quit after discharge. - Constitutional Vitals: Temp Pulse Resp BP Pulse Ox 97.6 F 65 16 124/74 98 08/05/16 08:20 08/05/16 08:20 08/05/16 08:20 08/05/16 08:20 08/05/16 08:20 General appearance: Present: A&O X 3, no acute distress, underweight, answers questions appropriately - Head Head exam: Present: atraumatic, normocephalic - Eye Eye exam: Present: PERRL, conjuntiva pink, sclera anicteric - Respiratory Respiratory exam: Present: CTAB. Absent: accessory muscle use, rales, rhonchi, wheezes - Cardiovascular Cardiovascular exam: Present: RRR, +S1, +S2. Absent: diastolic murmur, gallop, rubs, systolic murmur - GI/Abdominal GI/Abdominal exam: Present: normal bowel sounds, soft, no peritoneal signs. Absent: distended, tenderness - Extremities Exam Extremities exam: Present: warm, radial pulses palpable and symetrical. Absent : calf tenderness, cyanotic, pedal edema - Neurological Exam Neurological exam: Present: alert, oriented X3, no focal deficits Internal Medicine: Result - Labs CBC & Chem 7: 08/04/16 06:07 08/04/16 06:07 - ABG Interpretation ABG results: PT/INR, D-dimer PT 12.5 Seconds (9.4-12.1) H 07/30/16 01:57 Consult Discharge Plan - Plan Instructions: Chronic Obstructive Pulmonary Disease (DC), Pneumonia (DC), Lung Abscess (DC) Additional Instructions: Please follow-up with your primary care physician within one week after discharge from the hospital Please follow-up with reconciliation coordinator (Dr. Mora) within 1-2 weeks after discharge from the hospital. Dr. Mora will be able to go over your bronchoscopy results with you. Please continue oral antibiotics for 2 more days. Continue to use oxygen therapy at all times Please continue your home medications as prescribed by your primary care physician Referrals: Alix Mora MD [Partnered Physician] - 08/11/16 8:[address],PCP [Primary Care Provider] - 08/09/16 1:00 pm Prescriptions: Levofloxacin [Levaquin] 750 mg PO DAILY #2 tablet
== END 2016-08-05 16:30 | disposition home health service (06) | DRG 168 ==
LOC: EMEROO 22:23 → 3BNU 07-30 00:42 → SUATTDRO 07-30 00:42 → 3BNU 07-30 02:00
PROVIDERS: ADMIT Nurse Practitioner Family; ATTEND Internal Medicine